=== PATIENT | male | born 1990 | race Caucasian/White ===

== ENCOUNTER 2016-11-01 15:16 | Emergency (ER) | payer SELFPAY ==
[2016-11-01] MEDS ORDERED: HYDROmorphONE/DILAUDID 1 MG/ML SYR ONE (15:31)
[2016-11-01] MEDS ORDERED: HYDROmorphONE/DILAUDID 1 MG/ML SYR IVP ONE (15:31)
[2016-11-01] MEDS ORDERED: fentaNYL 100 MCG/2 ML INJ ONE (15:37)
[2016-11-01] MEDS ORDERED: ONDANSETRON 4 MG/2 ML VIAL ONE (15:38)
[2016-11-01] MEDS ORDERED: ONDANSETRON 4 MG/2 ML VIAL IVP ONE (15:39)
[2016-11-01] MEDS ORDERED: fentaNYL 100 MCG/2 ML INJ IVP ONE (15:39)
[2016-11-01 15:47] VITALS: O2SAT 94
--- NOTE | 2016-11-01 15:55 | EDPHY ---
H & P Time Seen by Provider: 11/01/16 15:29 HPI/ROS: CHIEF COMPLAINT: Left knee dislocation HISTORY OF PRESENT ILLNESS: 26-year-old male presents to the emergency department with a dislocation of his left knee. The patient was at work and stepping down a a stair and his left patella dislocated and he lowered himself to the ground. He denies any other trauma or injury. Denies chest pain or difficulty breathing. Denies hitting his head. Denies injury to his left ankle or hip. Denies symptoms in the right lower extremity. REVIEW OF SYSTEMS: Constitutional: No fever, no chills. Eyes: No double or blurry vision. ENT: No sore throat. Respiratory: No cough, no shortness of breath. Cardiac: No chest pain. Gastrointestinal: No abdominal pain, vomiting or diarrhea. Genitourinary: No dysuria. Musculoskeletal: No neck or back pain. Skin: No rashes. Neurological: No headache. Past Medical/Surgical History: Negative Social History: Single Smoking Status: Never smoked Physical Exam: General Appearance: Alert, no distress. Eyes: Pupils equal and round. Extraocular motions are all intact. ENT: Mouth: Mucous membranes moist. Respiratory: No wheezing, rhonchi, or rales, lungs are clear to auscultation. Cardiovascular: Regular rate and rhythm. Gastrointestinal: Abdomen is soft and nontender, no masses, no rebound or guarding, bowel sounds normal. Neurological: Alert and oriented x 3, cranial nerves II through XII grossly intact Skin: Warm and dry, no rashes. Musculoskeletal: Nontender to palpate along the cervical, thoracic or lumbar spine. Neck is supple. Extremities: Obvious deformity noted to the left knee with the patella riding laterally. He is holding his left knee in flexion for comfort. He has normal sensation to light touch with normal 2 point discrimination. Strong dorsalis pedis pulse on the dorsal aspect of the left foot. Full range of motion of the left ankle or left hip. Psychiatric: Patient is oriented X 3, there is no agitation. Constitutional: Initial Vital Signs Temperature (C) 36.9 C 11/01/16 15:24 Heart Rate 79 11/01/16 15:24 Respiratory Rate 18 11/01/16 15:24 Blood Pressure 136/92 H 11/01/16 15:24 O2 Sat (%) 92 11/01/16 15:24 O2 Delivery Mode Room Air O2 (L/minute) 3 Allergies/Adverse Reactions: cat dander Allergy (Verified 11/01/16 15:26) horse dander Allergy (Verified 11/01/16 15:26) Medical Decision Making - Diagnostics Imaging Results: Imaging Impressions Knee X-Ray 11/01/16 15:28 Impression: Negative left knee radiographs. Procedures: After consent was obtained from the patient, the patient received IV fentanyl and IV Dilaudid. The left patellar laterally displaced was easily relocated with extension gentle pressure on the patella laterally. Patient tolerated this quite well. Patient was then placed in a straight leg knee immobilizer and examined post application in good placement with normal PHYSICAL EDUCATION AIDE. ED Course/Re-evaluation: 26-year-old male presents with left knee dislocation. The patella was easily relocated. Patient was placed in straight leg knee immobilizer and was given orthopedic referral. The patient is aware that he is at great risk for recurring dislocation. He will have close follow-up with Orthopedics. - Data Points Medications Given: Discontinued Medications Fentanyl (Sublimaze) 100 mcg IVP EDNOW ONE Stop: 11/01/16 15:40 Last Admin: 11/01/16 15:39 Dose: 100 mcg Hydromorphone HCl (Dilaudid) 1 mg IVP EDNOW ONE Stop: 11/01/16 15:32 Last Admin: 11/01/16 15:32 Dose: 1 mg Ondansetron HCl (Zofran) 4 mg IVP EDNOW ONE Stop: 11/01/16 15:40 Last Admin: 11/01/16 15:41 Dose: 4 mg Departure - Departure Disposition: Home, Routine, Self-Care Clinical Impression: Dislocation of left patella Qualifiers: Encounter type: initial encounter Qualified Code(s): S83.005A - Unspecified dislocation of left patella, initial encounter Condition: Good Instructions: Patellar Dislocation (ED) Additional Instructions: Keep knee immobilizer on until follow-up with orthopedic surgeon. Weightbear as tolerated. Ibuprofen 600 mg every 8 hours as needed for pain. Return to the emergency department if you develop recurring subluxation, increasing pain, or if you feel worse in any way. Referrals: Patient,NotPresent [Unknown] - As per Instructions
[2016-11-01 16:31] VITALS: BP 128/83; PULSE 67; RESP 16; TEMP 98.2
== END 2016-11-01 16:32 | disposition home or self-care (01) ==
PROC: 0QSFXZZ Reposition Left Patella, External Approach (ICD-10-PCS; principal; 2016-11-01)
DX: S83.005A Unspecified dislocation of left patella, initial encounter (principal); X58.XXXA Exposure to other specified factors, initial encounter; Y92.69 Other specified industrial and construction area as the place of occurrence of the external cause; Y99.0 Civilian activity done for income or pay; Y93.89 Activity, other specified
CPT/HCPCS: 96374; J1170; J2405; J3010; L1830